=== PATIENT | female | born 1990 | race Caucasian/White ===

== ENCOUNTER 2017-03-18 11:23 | Emergency (ER) | payer MEDICAID ==
[~2017-03-18] VITALS: Ht 152.4 cm; Wt 51.2 kg
[2017-03-18 13:49] VITALS: BP 113/63
== END 2017-03-18 13:49 | disposition home or self-care (01) ==
LOC: ED 11:23
DX: R07.89 Other chest pain (principal)
CPT/HCPCS: Q0092